=== PATIENT | male | born 1995 | race African-American/Black ===

== ENCOUNTER 2020-11-19 09:06 | Emergency (ER) | payer OTHER ==
[~2020-11-19] VITALS: Ht 170.2 cm; Wt 63.0 kg
[2020-11-19 09:30] VITALS: BP 131/93
[2020-11-19] MEDS ORDERED: IBUP-2029 MT (10:01)
[2020-11-19] MEDS ORDERED: TRAM50TA3 MT (10:01)
== END 2020-11-19 10:12 | disposition home or self-care (01) ==
LOC: ER 09:06
DX: S42.001A Fracture of unspecified part of right clavicle, initial encounter for closed fracture (principal); J45.909 Unspecified asthma, uncomplicated; F12.10 Cannabis abuse, uncomplicated; Y04.0XXA Assault by unarmed brawl or fight, initial encounter; Y93.89 Activity, other specified; Y92.89 Other specified places as the place of occurrence of the external cause
CPT/HCPCS: 73030; 99283; A4565